=== PATIENT | male | born 1940 | race Hispanic/Latino ===

== ENCOUNTER → 2018-07-08 13:14 | Outpatient (CLI) | payer MEDICARE, OTHER, SELFPAY ==
--- NOTE | 2018-07-08 | DI.ECHO.S_ITS ---
[facility]---------+ [facility] +---------+ : : [address] : [address] [place] : : : : [id number] : : : : Phone: [phone]+ Echocardiogram Report + + :Name: TEMITOPE MORRIS I Study Date: 07/08/2018 Height: 66 in : :[facility] Exam Location: [facility] Weight: 166 lb : : Gender: Male BSA: 1.8 m2 : :: 1940 Age: 78 yrs BP: 128/60 mmHg: :Reason For Study: CARDIOMYOPATHY : :Ordering Physician: Joy : :Patricia Sharif Performed By: Vivi Conn : :Referring: JOY WORTHINGTON : + + Interpretation Summary Normal sinus rhythm with wide QRS complexes. Mildly dilated left ventricle. Normal wall thickness. There is apical, distal inferior akinesis; otherwise global hypokinesis of all other visualized segments with estimated ejection fraction of 30-35 percent. Stage II diastolic dysfunction. E-point septal separation is 0.9 cm consistent with cardiomyopathy. Moderate left atrial enlargement. Right ventricular size is normal. Mildly reduced right ventricular function. Aortic valve leaflets are mildly thickened and calcified. Mitral valve leaflets are normal. There is moderate central mitral regurgitation. Tricuspid valve leaflets are normal. There is a pacing lead traversing the tricuspid valve with mild associated tricuspid regurgitation. Compared to prior study 03/06/2017, no significant changes have occurred. Procedure: A two-dimensional transthoracic echocardiogram with color flow and Doppler was performed. The study quality was technically adequate. Comparison is made with the echocardiogram of 03/06/17. The patient has a paced rhythm. Left Ventricle: The left ventricle is mildly dilated. There is normal left ventricular wall thickness. There is no thrombus. Left ventricular systolic function is severely reduced. The ejection fraction is estimated to be 30-35%. Right Ventricle: There is a pacemaker lead in the right ventricle. Atria: The left atrium is moderately dilated. The right atrium is severely dilated. There is a catheter/pacemaker lead seen in the right atrium. Mitral Valve: The mitral valve is normal. There is mild to moderate mitral regurgitation. Aortic Valve: The aortic valve is trileaflet. There is mild aortic valve sclerosis. The aortic valve opens well. No aortic regurgitation is present. Tricuspid Valve: The tricuspid valve is not well visualized, but is grossly normal. There is mild tricuspid regurgitation. The right ventricular systolic pressure is estimated to be at least 32 mmHg based on an estimated right atrial pressure of 3 mm Hg. Pulmonic Valve: The pulmonic valve is not well seen, but is grossly normal. There is trace pulmonic regurgitation. Great Vessels: The aortic root is normal size. The ascending aorta is normal in size. The aortic arch could not be visualized. The pulmonary artery is normal size. The IVC is of normal diameter and collapses greater than 50% with a sniff. This suggests a low right atrial pressure of 3 mm Hg. Pericardium/ Pleura There is no pericardial effusion. There is no pleural effusion. MMode/2D Measurements & Calculations LVIDd: 6.1 cm LVOT diam: 2.1 cm LVIDs: 4.9 cm Ao root diam: 3.2 cm FS: 19.0 % asc Aorta Diam: 3.4 cm EPSS: 0.91 cm IVSd: 0.74 cm LVPWd: 0.89 cm LV roman. diameter/BSA (cm/m^2): 3.3 LV sys. diameter/BSA (cm/m^2): 2.7 LA A2 area: 32.8 cm2 RA long axis: 5.1 cm LA A4 area: 35.5 cm2 RA area: 23.1 cm2 LA length (vol): 6.7 cm RA vol: 88.3 ml LA vol: 148.6 ml RA : 47.8 ml/m2 LA vol index: 80.4 ml/m2 IVC diam: 1.6 cm RVD1 (basal): 4.9 cm RVD2 (mid): 2.7 cm TAPSE: 1.8 cm Doppler Measurements & Calculations Ao V2 max: 133.9 cm/sec LVOT Max Aman: 64.2 cm/sec Ao V2 mean: 86.2 cm/sec LV V1 max P.6 mmHg Ao max P.2 mmHg LV V1 VTI: 12.7 cm Ao mean P.5 mmHg ABELARDO(I,D): 1.7 cm2 Ao V2 VTI: 25.8 cm ABELARDO(V,D): 1.6 cm2 sev ratio: 0.49 ABELARDO indexed to BSA (cm^2/m^2): 0.91 MV E max aman: 75.3 cm/sec TR max aman: 267.1 cm/sec MV A max aman: 63.6 cm/sec TR max P.5 mmHg MV E/A: 1.2 PA V2 max: 61.3 cm/sec Med Peak E' Aman: 2.6 cm/sec PA V2 mean: 39.7 cm/sec E/E' med: 28.6 PA mean P.74 mmHg Lat Peak E' Aman: 2.7 cm/sec PA pr(Accel): 34.1 mmHg E/E' lat: 27.5 E/e' average: 28.0 MV dec time: 0.19 sec SV(LVOT): 43.5 ml Reading Physician:08:40 PM
== END ==
PROVIDERS: Family Provider Family Medicine; PCP Family Medicine; Visit Provider Hospitalist
DX: I08.3 Combined rheumatic disorders of mitral, aortic and tricuspid valves (principal); I42.9 Cardiomyopathy, unspecified
CPT/HCPCS: 93306